=== PATIENT | female | born 1970 | race Caucasian/White ===

== ENCOUNTER 2016-08-31 06:49 | Emergency (ER) | payer OTHER ==
[~2016-08-31] VITALS: Ht 170.2 cm; Wt 80.0 kg
[~2016-08-31 06:49] MED LIST: COMBIVENT200 INHALA IH; COZAAR100 MG PO; FLONASE16 G1 BOTH NARES; SINGULAIR10 MG PO; ZANTAC150 MG PO; ZESTORETIC 20-1 EACH PO
[2016-08-31 07:48] LABS: HEMATOCRIT 41.9 % (36.0-46.0); MCH 29.2 PG (29.0-34.0); MCHC 34.1 G/DL (30.0-36.0); MCV 85.5 FL (83-99); PLATELET COUNT 219 K/uL (156-360); RBC DIS.WIDTH-CV 12.6 % (11.8-14.6); RBC DIS.WIDTH-SD 38.3 % (39-53); WHITE BLOOD COUNT 7.3 K/uL (4.1-10.2)
[2016-08-31 07:59] LABS: CHLORIDE 110 mEq/L (99-109); POTASSIUM 3.9 mEq/L (3.7-5.4); SODIUM 141 mEq/L (136-147)
[2016-08-31 08:01] LABS: GLUCOSE 87 mg/dL (70-99)
[2016-08-31 08:02] LABS: ANION GAP 12 MEQ/L (2-14)
[2016-08-31 08:05] LABS: GFR ESTIMATE (CALCULATED) > 59 mL/min/
[2016-08-31 08:06] LABS: UREA NITROGEN (BUN) 11 mg/dL (9-23)
[2016-08-31 08:09] LABS: TROP-I INTERPRETATION NEGATIVE; TROPONIN-I < 0.01 ng/mL (0.0-0.30)
[2016-08-31 08:15] LABS: QUANTITATIVE HCG < 4.0 MIU/ML
[2016-08-31 10:45] LABS: ADD MIUA? NO; BILIRUBIN NEGATIVE; BLOOD NEGATIVE; COLOR YELLOW ((YELLOW)); GLUCOSE (STRIP) NEGATIVE; KETONES 15; LEUKOCYTES NEGATIVE; NITRITE NEGATIVE; PH, URINE 7.5 (5-8); PROTEIN (STRIP) NEGATIVE; SPECIFIC GRAVITY 1.009 (1.000-1.030); UCUL ADDED? NO; UROBILINOGEN 0.2 MG/DL (0.2-1.0)
[2016-08-31 12:47] VITALS: BP 132/80
== END 2016-08-31 14:18 | disposition home or self-care (01) ==
LOC: EME 06:49
PROVIDERS: Emergency Medicine
PROC: 3E0234Z Introduction of Serum, Toxoid and Vaccine into Muscle, Percutaneous Approach (ICD-10-PCS; principal; 2016-08-31)
DX: R55 Syncope and collapse (principal); S00.83XA Contusion of other part of head, initial encounter; S01.81XA Laceration without foreign body of other part of head, initial encounter; W19.XXXA Unspecified fall, initial encounter; J45.909 Unspecified asthma, uncomplicated; I10 Essential (primary) hypertension
CPT/HCPCS: 70450; 70486; 71010; 72125; 80048; 81003; 84484; 84702; 85027; 93005; 99281; 99285

== ENCOUNTER 2017-01-25 07:28 | Emergency (ER) | payer OTHER ==
[~2017-01-25] VITALS: Ht 157.5 cm; Wt 79.4 kg
[2017-01-25 08:25] LABS: HEMATOCRIT 44.1 % (36.0-46.0); MCH 28.4 PG (29.0-34.0); MCHC 33.1 G/DL (30.0-36.0); MCV 85.8 FL (83-99); MEAN PLAT.VOLUME 11.1 uM^3 (9.5-12.4); PLATELET COUNT 233 K/uL (156-360); RBC DIS.WIDTH-CV 12.1 % (11.8-14.6); RBC DIS.WIDTH-SD 37.8 % (39-53); RED BLOOD COUNT 5.14 M/uL (3.80-5.20); WHITE BLOOD COUNT 8.8 K/uL (4.1-10.2)
[2017-01-25 08:40] LABS: CHLORIDE 105 mEq/L (99-109); D-DIMER ELISA 0.22 mg/L FEU (< 0.57); POTASSIUM 3.9 mEq/L (3.7-5.4); SODIUM 137 mEq/L (136-147)
[2017-01-25 08:42] LABS: GLUCOSE 89 mg/dL (70-99)
[2017-01-25 08:43] LABS: ANION GAP 7 MEQ/L (2-14)
[2017-01-25 08:46] LABS: GFR ESTIMATE (CALCULATED) > 59 mL/min/; TROP-I INTERPRETATION NEGATIVE; TROPONIN-I < 0.01 ng/mL (0.0-0.30)
[2017-01-25 08:47] LABS: UREA NITROGEN (BUN) 11 mg/dL (9-23)
[2017-01-25] MEDS ORDERED: VENTOLIN HFA18 GM IH (09:07)
[2017-01-25 09:17] VITALS: BP 137/80
== END 2017-01-25 09:25 | disposition home or self-care (01) ==
LOC: EME 07:28
PROVIDERS: Emergency Medicine
DX: J45.901 Unspecified asthma with (acute) exacerbation (principal); G47.00 Insomnia, unspecified; I10 Essential (primary) hypertension
CPT/HCPCS: 80048; 84484; 85027; 85379; 93005; 99281; 99284